=== PATIENT | female | born 1980 | race Caucasian/White ===

== ENCOUNTER 2020-01-16 17:52 | Emergency (ER) | payer MEDICAID, OTHER, SELFPAY ==
[~2020-01-16] VITALS: Ht 160 cm; Wt 65.5 kg
[2020-01-16 18:25] VITALS: BP 113/71
== END 2020-01-16 19:12 | disposition home or self-care (01) ==
LOC: ED 19:00
DX: K08.89 Other specified disorders of teeth and supporting structures (principal); F17.210 Nicotine dependence, cigarettes, uncomplicated
CPT/HCPCS: 99283; 99406

== ENCOUNTER 2020-01-17 08:16 | Emergency (ER) | payer MEDICAID ==
[~2020-01-17] VITALS: Ht 154.9 cm; Wt 65.0 kg
[2020-01-17 08:31] VITALS: BP 112/69
[2020-01-17] MEDS ORDERED: CLINDAMYCIN 300 MG CAPSULE ONE (09:00)
[2020-01-17] MEDS ORDERED: CLINDAMYCIN 300 MG CAPSULE PO ONE (10:00)
== END 2020-01-17 09:23 ==
LOC: ED 08:50
DX: K08.89 Other specified disorders of teeth and supporting structures (principal); R22.0 Localized swelling, mass and lump, head
CPT/HCPCS: 99283